=== PATIENT | male | born 1950 | race Caucasian/White ===

== ENCOUNTER 2017-07-18 19:23 | Observation (INO) | payer MEDICARE, BC ==
[~2017-07-18] VITALS: Ht 180.3 cm; Wt 74.4 kg
[2017-07-18] MEDS ORDERED: GLUCAGON FOR INJ 1 MG VIAL (J1610) IV STA (21:18)
[2017-07-18] MEDS ORDERED: PROPOFOL 200 MG/20 ML VIAL As Ordered ONE (23:31)
[2017-07-19] MEDS ORDERED: PROPOFOL 200 MG/20 ML VIAL As Ordered ONE ×2 (00:13→00:29)
[2017-07-19] MEDS ORDERED: ePHEDrine SULFATE 25 MG/5 ML(5MG/ML) SYRINGE As Ordered ONE (00:20)
[2017-07-19] MEDS ORDERED: PHENYLephrine HCL 500 MCG/5 ML (100MCG/ML) SYRINGE (J2370) As Ordered ONE (00:21)
[2017-07-19] MEDS ORDERED: GLYCOPYRROLATE INJ 0.2 MG/ML 2 ML VIAL As Ordered ONE (00:33)
[2017-07-19] MEDS ORDERED: ONDANSETRON 4MG/2ML VIAL (J2405) As Ordered ONE (00:34)
[2017-07-19] MEDS ORDERED: GASTROGRAFIN SOLUTION 30ML (Q9963) As Ordered ONE (01:20)
--- NOTE | 2017-07-19 01:28 | ROOR ---
Patient Name: Salas Krishnan Procedure Date: 07/18/2017 10:57 PM Date of : 1950 Age: 67 Room: Main OR Gender: Male Note Status: Finalized Procedure: Upper GI endoscopy Indications: Foreign body in the esophagus Providers: Sergio MOCK MD Referring MD: 3. Emergency Dept 3. Emergency Dept Requesting Provider: Medicines: Monitored Anesthesia Care Complications: No immediate complications. Procedure: Pre-Anesthesia Assessment: - The heart rate, respiratory rate, oxygen saturations, blood pressure, adequacy of pulmonary ventilation, and response to care were monitored throughout the procedure. The Endoscope was introduced through the mouth, and advanced to the second part of duodenum. The upper GI endoscopy was technically difficult and complex due to presence of food and stricture. The patient tolerated the procedure well. Findings: Food was found in the lower third of the esophagus. Removal of food was accomplished. One moderate ulcerated stenosis was found in the lower third of the esophagus. Two deeply cratered distal esophageal ulcers were found. Moderately severe esophagitis was found in the lower third of the esophagus. Mucosa was biopsied with a cold forceps for histology. Impression: - Impacted food in the lower third of the esophagus. Removal was successful. - Inflamed, ulcerated and stenotic GE junction with marked edema.-biopsied - The examination was otherwise normal. Recommendation: - CT chest with oral contrast. - Ad[facility] the [facility] to [facility] for observation. - NPO for now. Sergio Mock MD Sergio MOCK MD 07/19/2017 1:28:45 AM This report has been signed electronically. Number of Addenda: 0 Note Initiated On: 07/18/2017 10:57 PM Estimated Blood Loss: Estimated blood loss: none.
--- NOTE | 2017-07-19 02:10 | REPUSA ---
CLINICAL HISTORY: Prior foreign body removal. TECHNIQUE: Multiple axial CT images were obtained through the thorax without IV contrast material. Glenn dennis ingested oral contrast. COMMENTS: Small sliding hiatal hernia. Contrast is noted in the esophagus without leakage. No findings to suggest esophageal perforation. No soft tissue emphysema is identified in the mediastinal fat. Bilateral basilar groundglass densities of the lungs with associated subsegmental atelectatic air spa ce disease. There is no evidence of pleural or parenchymal-based mass. There are no pleural effusions. There is n o evidence of hilar or mediastinal lymphadenopathy. The heart and great vessels are within normal carr its. The visualized portions of the liver are of uniform attenuation without mass or defect. There is no i ntra or extrahepatic biliary ductal dilatation. The spleen is unremarkable. The visualized pancreas i s of normal contour and attenuation characteristics. There is no evidence of adrenal mass. The visual ized portions of the kidneys present no abnormalities. The bony structures are free of lytic or blastic lesions. IMPRESSION: Air space disease of the lower lobes. Dependent atelectasis and/or superimposed aspiration pneumonia. Clinical evaluation of any signs of active pulmonary infection is needed. No evidence of esophageal perforation. Contrast is noted in the esophagus. Small sliding hiatal hernia. Thank you for your kind referral of this patient.
[2017-07-19 02:30] VITALS: BP 117/80
[2017-07-19] MEDS ORDERED: ONDANSETRON 4MG/2ML VIAL (J2405) IV PRN (02:30)
[2017-07-19] MEDS: NS 1,000 ML IV SCH ×2 (02:51→12:23)
[2017-07-19 04:00] VITALS: BP 105/60
[2017-07-19] MEDS ORDERED: PANTOPRAZOLE 40MG INJ (PROTONIX) (C9113) IV SCH (06:00)
[2017-07-19] MEDS: HEPARIN SOD (PORCINE) 5000 UNITS/ML VIAL SC SCH ×2 (06:14→06:16)
[2017-07-19 09:27] LABS: BASO % 0.2 % (0.0-1.0); EOS # 0.2 K/mm3 (0.0-0.50); LARGE UNSTAINED CELL # 0.2 K/mm3 (0.0-0.4); LARGE UNSTAINED CELL % 1.7 % (0.0-4.0); MEAN CORPUSCULAR HEMOGLOBIN 31.6 pg (27.0-33.0); MEAN CORPUSCULAR HGB CONC 35.5 g/dl (32.0-36.5); MONO # 0.5 K/mm3 (0.0-0.8); MONO % 5.1 % (0.0-5.0); NEUTROPHILS # 6.6 K/mm3 (1.8-7.7); NEUTROPHILS % 69.9 % (36.0-66.0); PLATELET COUNT, AUTOMATED 163 k/mm3 (150-450); RED CELL DISTRIBUTION WIDTH 12.2 % (11.5-14.5); WHITE BLOOD COUNT 9.5 K/mm3 (4.0-10.0)
--- NOTE | 2017-07-19 09:42 | CR ---
DATE OF CONSULTATION: 07/19/2017 STATUS OF PATIENT: Inpatient/observation. Mr. Krishnan is a 67-year-old gentleman without any significant past medical history or surgical history who presents to the emergency room after 2 days of foreign body impaction in the esophagus that he has been trying to clear at home by himself. He has had recurrent symptoms of esophageal food impactions that spontaneously clear for the past several years. However, on this occasion this did not. He is otherwise quite healthy. He does not have a primary care physician and takes no medications. Upper endoscopy was performed in the operating room under MAC anesthesia. He had esophageal food impaction, which was quite severely impacted and required extensive and numerous passes through the esophagus to disimpact. Eventually disimpaction was accomplished. Once the food material was cleared, underlying deep ulcerations, severe inflammation, edema and associated mucosal laceration. The patient tolerated the procedure and post op course otherwise quite well. However, due to the depth of the ulcerations and the associated mucosal lacerations I was uncertain if I had created this with my scope or whether these are baseline. The patient also has an esophageal stricture in this area. The patient postoperatively is doing quite well. He is afebrile. He denies any chest pain. No back pain. No shortness of breath and had an uneventful initial postoperative course. Due to the severity of the esophagitis and ulcerations, I decided to proceed with a CT chest with oral contrast to exclude an esophageal rupture/leak. CT of the chest was performed and no such leak was seen. The patient is being admitted for observation overnight to monitor for delayed perforation.. PAST MEDICAL HISTORY: None except for recurrent bouts of esophageal food impaction that spontaneously clear. Onset was about 3-4 years ago. Other than that, he has no medical history, he takes no medications. FAMILY HISTORY: Negative for colorectal carcinoma, inflammatory bowel disease. REVIEW OF SYSTEMS: General: Negative for weight loss, night sweats, fevers or chills. Pulmonary: Negative for hemoptysis, pleuritic-type chest pain. Cardiac: Negative for orthopnea, paroxysmal nocturnal dyspnea (PND). Gastrointestinal (GI): As per history of present illness (HPI). Genitourinary (): Negative for hematuria, dysuria. Musculoskeletal: Negative for arthralgias, myalgias. ALLERGIES TO MEDICATIONS: None. MEDICATIONS: None. Vital signs: Temperature 99.8/95.2, pulse is 78 and regular, respiratory rate is 16, blood pressure is 101/72, pulse oximetry 93% on room air. General: He is awake, alert and oriented times three in no acute distress, nontoxic in appearance, completely comfortable. Head, eyes, ears, nose and throat are without abnormalities. There is no oral thrush. Neck is supple, no lymphadenopathy, thyromegaly. Chest: Coarse distant breath sounds without rhonchi. Abdomen is soft, nontender. Good bowel sounds. No masses or organomegaly. Extremities: Negative for edema. Rectal: Examination has been deferred. Neurologic examination: He moves all extremities equally and bilaterally. He is awake, alert and oriented times three. RADIOLOGY: CT chest reviewed as above. EGD as reviewed above. IMPRESSION: 67-year-old gentleman that presents with esophageal food impaction that was extremely difficult to clear and required numerous passes with the scope. Once the foreign body was cleared, underlying severe deep ulcerations and some mucosal lacerations were noted. It is unknown whether the ulcerations/lacerations are baseline or whether this was created by scope. RECOMMENDATIONS: 1. The patient will be admitted for observation due to esophageal findings. Perforation which has been ruled out by exam and stat CT chest. 2. Depending on progress tonight and tomorrow morning, will recheck stat CT scan if spiking fevers or symptoms of delayed esophageal perforation. MTDD
--- NOTE | 2017-07-19 09:42 | HPE ---
DATE OF ADMISSION: 07/18/2017 PRIMARY CARE PROVIDER: None. HISTORY OF PRESENT ILLNESS: This patient is a 67-year-old male without any past medical history presented to [facility] on 07/18/2017 after food is stuck in the throat. Patient stated on 07/17/2017 around 5 p.m. patient was eating supper when he tried to ingest meat and the meat stuck in his esophagus and he could not get it out. He does have difficulty swallowing with solids for the past 3-4 years. No issue with liquid oral intake. Patient was brought to the procedure room by Dr. Mock for upper endoscopy. The food was found in the lower third of the esophagus and the food was removed. During the procedure, patient was found to have moderate ulcerated stenosis in the lower third of the esophagus and there are two very deep cratered distal esophageal ulcers. Patient tolerated procedure well. However, due to concern for perforation, CT was performed and it is recommended patient be observed overnight. The procedure was performed near midnight. ALLERGIES: No known drug allergies. PAST MEDICAL HISTORY: None. PAST SURGICAL HISTORY: Hernia repair more than 20 years ago. HOME MEDICATIONS: None. SOCIAL HISTORY: Denies smoking. Drinks beer occasionally. Denied any recreational drug use. REVIEW OF SYSTEMS: GENERAL: No fever. No chills. HEENT: No vision changes. No auditory changes. CARDIOVASCULAR: No chest pain. No palpitations. RESPIRATORY: Denies any shortness of breath or cough or sputum production. GASTROINTESTINAL: Patient has been having issues with solid oral intake for the past 3-4 years. Patient is being very cautious regarding the way he eats. Patient came to the hospital because the meat got stuck in the esophagus and he was not able to get it out. No issue with liquid oral intake. Denies any stomach pain. No diarrhea. MUSCULOSKELETAL: Complains about the pain between the scapula after the procedure. NEUROLOGICAL: No numbness. No tingling. OBJECTIVE: VITAL SIGNS: Temperature 99.8, pulse 80, respirations 16, blood pressure 99/64, pulse oximetry is 93% in room air. GENERAL: No sign of acute distress. Alert and oriented times three. HEENT: Normocephalic, atraumatic. Extraocular motor grossly intact. CARDIOVASCULAR: Positive systolic murmur heard at the sternal border. Positive S1, S2, regular rate. LUNGS: There are minor crackles mainly on the lung base toward the left. No wheezes appreciated. ABDOMEN: Soft, nontender, nondistended, bowel sounds present. MUSCULOSKELETAL: No reproducible tenderness with pressure between the scapula. No lower extremity edema. No sign of cyanosis. NEUROLOGICAL: Sensation to fine touch grossly intact. Muscle strength 5/5. IMAGING STUDIES: CT of the chest without contrast shows airspace disease of the lower lobe. Dependent atelectasis and/or superimposed aspiration pneumonia. No evident esophageal perforation. ASSESSMENT AND PLAN: 1. Dysphagia. Patient will be admitted to medical/surgical floor for overnight observation. Patient was found to have moderate ulcerated stenosis in the lower third of esophagus. Patient just had an upper endoscopy with foreign body removal. During the endoscopy, patient was found to have two deeply cratered distal esophageal ulcers. Due to concern for perforation, patient is admitted for overnight observation. CT of the chest was performed demonstrating no sign of perforation. If the patient started to have acute pain or spiking fever, then we will order a stat repeat CT chest and patient will benefit from broad spectrum antibiotics. Patient is on intravenous (IV) Protonix and the patient is nothing by mouth for now. The patient is on IV fluid. 2. Moderately severe esophagitis. On Protonix. 3. Deep venous thrombosis (DVT) prophylaxis. On heparin.
--- NOTE | 2017-07-19 09:42 | REP ---
Clinical: Foreign body sensation. Technique: AP lateral soft tissue neck views. Findings: Moderate to advanced degenerative changes to the visualized cervical spine noted. The prevertebral soft tissues are relatively normal and there is no subcutaneous emphysema or radiodense foreign body. The airway remains patent. Impression: Degenerative changes of the cervical spine. No obvious foreign body. Signed by Freddy Dodson MD 07/19/2017 08:00 A
[2017-07-19 09:44] LABS: ANION GAP 9 MEQ/L (8-16); BLOOD UREA NITROGEN 25 MG/DL (7-18); CALCIUM LEVEL 7.9 MG/DL (8.8-10.2); CARBON DIOXIDE LEVEL 26 MEQ/L (21-32); CHLORIDE LEVEL 111 MEQ/L (98-107); CREATININE FOR GFR 0.88 MG/DL (0.70-1.30); GLOMERULAR FILTRATION RATE > 60.0 (>49); GLUCOSE, FASTING 87 MG/DL (80-110); POTASSIUM SERUM 3.8 MEQ/L (3.5-5.1); SODIUM LEVEL 146 MEQ/L (136-145)
[2017-07-19] MEDS ORDERED: PROT1TAB2 PO (12:24)
--- NOTE | 2017-07-19 15:18 | DSES ---
DATE OF ADMISSION: 07/18/2017 DATE OF DISCHARGE: 07/19/2017 PRIMARY CARE PROVIDER: None. Arrangements are made for the patient to get a primary care provider. Lending Activities Supervisor: Dr. Sergio Mock FINAL DIAGNOSES: Moderate/severe esophagitis. Dysphagia with food impaction. Esophageal ulceration secondary to esophageal pressure ulcer secondary to food impaction. HISTORY OF PRESENT ILLNESS: This is a 67-year-old male patient without any significant past medical history. He does not see a primary care provider. He presented to [facility] after food got stuck in the patient's throat. The patient stated that on 07/17/2017 around 5:00 p.m., the patient was eating supper when he tried to ingest meat and the meat stuck in his esophagus and he could not get it out. The patient does have difficulty swallowing solids for the past 3-4 years. No issue with liquids or oral intake. The patient was brought to the procedure room by Dr. Sergio Mock. Upper endoscopy was done and fluid was found in the lower third of the esophagus and was removed during the procedure. The patient was found to have a moderate ulcerated stenosis in the lower third of the esophagus. There are two very deep craters in the distal esophageal ulcer. The patient tolerated the procedure well. However, for concern of perforation, request was made for patient to be observed overnight. HOSPITAL COURSE: The patient was admitted overnight after Esophagogastroduodenoscopy (EGD) to the hospitalist service. Labs were sent. CT scan was done showing no esophageal perforation. IV fluids were given. Initially, patient was nothing by mouth. Protonix IV was given. Later after morning labs and after discussion with Dr. Mock, the patient's diet was advanced to full liquid. The patient tolerated the diet with no complications. He is comfortable, ready for discharge for further care as an outpatient. VITAL SIGNS: Temperature 98.8, pulse 66, respiration 18, blood pressure 105/60, pulse ox 97% in room air. GENERAL: Patient alert, oriented times three in on acute distress. HEENT: Normocephalic, atraumatic. PULMONARY: Bilaterally clear to auscultation. CARDIAC: Regular rate and rhythm. Normal S1, S2. ABDOMEN: Soft, nontender. EXTREMITIES: No clubbing, cyanosis or edema. LABORATORY: WBC 9.5, hemoglobin and hematocrit 14.6/41.3, platelets 133. Chemistries: Sodium 146, potassium 3.8, chloride 111, bicarbonate 26, BUN 25, creatinine 0.88, lactic acid 1.2. DISCHARGE MEDICATIONS: Protonix 40 mg by mouth daily DISCHARGE INSTRUCTIONS: The patient is instructed to followup with primary care provider in 1-2 weeks. Followup with pediatric hospitalist, Dr. Mock in 2 weeks. Return to the hospital if symptoms worsen. The patient is instructed to start with a full liquid diet, advanced to soft, no meat or hard vegetable diet after wards and followup with Dr. Mock prior to any additional diet change. The patient is instructed to chew his food as much as possible. Followup pathology.
== END 2017-07-19 13:50 | disposition home or self-care (01) ==
LOC: M ED 19:23 → M MS4PR 19:24
PROVIDERS: ADMIT Internal Medicine; ATTEND Hospitalist
DX: T18.128A Food in esophagus causing other injury, initial encounter (principal); K22.2 Esophageal obstruction; K22.10 Ulcer of esophagus without bleeding; Z79.899 Other long term (current) drug therapy; R13.10 Dysphagia, unspecified; K20.9 Esophagitis, unspecified
CPT/HCPCS: 36415; 43239; 43247; 70360; 71250; 80048; 83605; 85025; 88305; 96374; 96375; 99284; C9113; G0378; J1610; J2370; J2405; Q9963

== ENCOUNTER 2018-08-25 07:24 | Day surgery (SDC) | payer MEDICARE ==
[2018-08-25 08:17] LABS: BASO % 0.3 % (0.0-1.0); EOS # 0.2 10^3/uL (0.0-0.50); EOS % 2.1 % (0.0-3.0); HEMATOCRIT 50.8 % (42.0-52.0); HEMOGLOBIN 17.1 g/dl (13.5-17.5); IMMATURE GRANULOCYTE % 0.4 % (0-3.0); LYMPH # 2.9 10^3/uL (1.5-4.5); LYMPH % 28.6 % (24.0-44.0); MEAN CORPUSCULAR HEMOGLOBIN 29.7 pg (27.0-33.0); MEAN CORPUSCULAR HGB CONC 33.7 g/dl (32.0-36.5); MEAN CORPUSCULAR VOLUME 88.3 fl (80.0-96.0); MONO # 0.6 10^3/uL (0.0-0.8); MONO % 5.5 % (0.0-5.0); NEUTROPHILS # 6.4 10^3/uL (1.8-7.7); NEUTROPHILS % 63.1 % (36.0-66.0); PLATELET COUNT, AUTOMATED 179 10^3/uL (150-450); RED BLOOD COUNT 5.75 10^6/uL (4.30-6.10); WHITE BLOOD COUNT 10.2 10^3/uL (4.0-10.0)
[2018-08-25 08:40] LABS: ANION GAP 9 MEQ/L (8-16); BLOOD UREA NITROGEN 21 MG/DL (7-18); CALCIUM LEVEL 9.4 MG/DL (8.8-10.2); CARBON DIOXIDE LEVEL 28 MEQ/L (21-32); CHLORIDE LEVEL 105 MEQ/L (98-107); CREATININE FOR GFR 1.06 MG/DL (0.70-1.30); GLOMERULAR FILTRATION RATE > 60.0 (>49); GLUCOSE, FASTING 117 MG/DL (70-100); POTASSIUM SERUM 4.4 MEQ/L (3.5-5.1); SODIUM LEVEL 142 MEQ/L (136-145)
[2018-08-25] MEDS: NS 1,000 ML IV ×2 (10:03→16:26)
[2018-08-25] MEDS: GLUCAGON FOR INJ 1 MG VIAL (J1610) IV (10:03)
[2018-08-25] MEDS ORDERED: MIDAZOLAM INJ 2 MG/2 ML VIAL (J2250) As Ordered (18:20)
[2018-08-25] MEDS ORDERED: fentaNYL 100 MCG/2 ML INJECTION (J3010) As Ordered (18:20)
[2018-08-25] MEDS ORDERED: ONDANSETRON 4MG/2ML VIAL (J2405) As Ordered (18:32)
[2018-08-25] MEDS ORDERED: dexameTHASONE 4 MG/ML 1ML VIAL (J1100) As Ordered (18:32)
[2018-08-25] MEDS: LR 1,000 ML IV (18:59)
[2018-08-25] MEDS: PANTOPRAZOLE 40MG INJ (PROTONIX) (C9113) IV (19:15)
[2018-08-25] MEDS ORDERED: PERCOCET 5MG/325MG TAB PO (19:30)
[2018-08-25] MEDS ORDERED: HYDROMORPHONE HCL 0.5 MG/ 0.5 ML SYRINGE (J1170 PER 1) IV (19:30)
[2018-08-25] MEDS ORDERED: fentaNYL 100 MCG/2 ML INJECTION (J3010) IV (19:30)
[2018-08-25] MEDS ORDERED: ONDANSETRON 4MG/2ML VIAL (J2405) IV (19:30)
[2018-08-25] MEDS ORDERED: LIDOCAINE 2% INJ 100 MG/5 ML SDV (FOR ANES.) As Ordered (21:14)
[2018-08-25] MEDS ORDERED: PROPOFOL 200 MG/20 ML VIAL As Ordered (21:14)
== END 2018-08-25 20:50 | disposition home or self-care (01) ==
LOC: M SDC 20:50 → M ED 07:24 → M SDC 16:11
DX: K20.9 Esophagitis, unspecified (principal); K44.9 Diaphragmatic hernia without obstruction or gangrene; K29.70 Gastritis, unspecified, without bleeding
CPT/HCPCS: 43239

== ENCOUNTER → 2019-05-14 | Outpatient (REF) | payer SELFPAY ==
[~2019-05-14] MED LIST: PROT1TAB2 PO
== END ==
LOC: M LAB LCGH 14:36
PROVIDERS: ATTEND Physician Assistant
DX: C44.310 Basal cell carcinoma of skin of unspecified parts of face (principal)

== ENCOUNTER 2020-12-15 15:34 | Day surgery (SDC) | payer MEDICARE ==
[~2020-12-15] VITALS: Ht 180.3 cm; Wt 74.7 kg
--- OUTSIDE RECORDS SUMMARY | 2020-12-15 15:43 | CCD ---
Author Author [facility] Organization [facility] Address Unknown Phone Unavailable Support Name Relationship Address Phone SELF Next Of Kin [address] [place] [address] UNK Next Of Kin Unknown Unavailable SOURWINE, SPENCER Next Of Kin [address] [place] [address] SELF EMP DAIRY FARM Next Of Kin [address] [place] [address] SUNNY GOMES Next Of Kin [address] [place] [address] MANINDER GOMES Next Of Kin [address] [place] [address] Spencer Gomes ECON Unknown Unavailable Shanawine, F Maninder ECON [address] [place] [address] Re-disclosure Warning The records that you are about to access may contain information from federally-assisted alcohol or drug abuse programs. If such information is present, then the following federally mandated warning applies: This information has been disclosed to you from records protected by federal confidentiality rules (42 CFR part 2). The federal rules prohibit you from making any further disclosure of this information unless further disclosure is expressly permitted by the written consent of the person to whom it pertains or as otherwise permitted by 42 CFR part 2. A general authorization for the release of medical or other information is NOT sufficient for this purpose. The Federal rules restrict any use of the information to criminally investigate or prosecute any alcohol or drug abuse patient.The records that you are about to access may contain highly sensitive health information, the redisclosure of which is protected by Article 27-F of the [facility] Public Health law. If you continue you may have access to information: Regarding HIV / AIDS; Provided by facilities licensed or operated by the [facility] Office of Mental Health; or Provided by the [facility] Office for People With Developmental Disabilities. If such information is present, then the following [facility] mandated warning applies: This information has been disclosed to you from confidential records which are protected by state law. State law prohibits you from making any further disclosure of this information without the specific written consent of the person to whom it pertains, or as otherwise permitted by law. Any unauthorized further disclosure in violation of state law may result in a fine or fci sentence or both. A general authorization for the release of medical or other information is NOT sufficient authorization for further disc losure. Family History Family Member Name Family Member Gender Family Member Status Date o f Status Description Data Source(s) Unknown Unknown Problem MEDENT ([facility], ) mother age 80 Insurance Providers Payer name Policy type / Coverage type Policy ID Covered constitution party ID Covered constitution party's relationship to mas Policy Mas Plan Information MEDICARE COMPLETE [id number] SP [id number] [facility] MEDICARE [id number] S [id number] [employer] [place] [id number] S [id number] [facility] MEDICARE [id number] S [id number] [employer] [place] [id number] S [id number] SELF PAY SP MEDICARE COMPLETE [id number] SP [id number] MEDICARE COMPLETE [id number] SP [id number] MEDICARE COMPLETE [id number] SP [id number] MEDICARE COMPLETE [id number] SP [id number] [place] [place] WATN 306/806 [id number] SP [id number] MEDICARE COMPLETE[facility] O [id number] S [id number] [place] Primary [id number] Self [id number] [facility] Medicare Commercial [id number] Self [id number] [employer] BCBS Medigap Part B [id number] Self [id number] [place] Primary [id number] Self [id number] United[employer] Medicare Commercial [id number] Self [id number] [place] Primary [id number] Self [id number] [facility] Medicare Commercial [id number] Self [id number] [place] MEDICARE PART B C [id number] S [id number] MEDICARE C [id number] S [id number] A [place] MEDICARE PART B C [id number] S [id number] MEDICARE [id number] SP [id number] A EXC PLANS 1 [id number] SELF PAY 2 UNAVAILABLE 1 UNAVAILA BLE SELF PAY SP [id number] S [id number] [employer] [place] BC [id number] S JOURDAN [id number]
--- OUTSIDE RECORDS SUMMARY | 2020-12-15 16:12 | CCD ---
Author Author [facility] Organization [facility] Address Unknown Phone Unavailable Support Name Relationship Address Phone SELF Next Of Kin [address] [place] [address] UNK Next Of Kin Unknown Unavailable SOURWINE, SPENCER Next Of Kin [address] [place] [address] SELF EMP DAIRY FARM Next Of Kin [address] [place] [address] SUNNY GOMES Next Of Kin [address] [place] [address] MANINDER GOMES Next Of Kin [address] [place] [address] Spencer Gomes ECON Unknown Unavailable Shanawine, F Maninder ECON [address] [place] [address] Re-disclosure Warning The records that you are [...] is protected by Article 27-F of the [facility] Public Health law. If you continue you may have access to information: Regarding HIV / AIDS; Provided by facilities licensed or operated by the [facility] Office of Mental Health; or Provided by the [facility] Office for People With Developmental Disabilities. If such information is present, then the following [facility] mandated warning applies: This information [...] law may result in a fine or snf sentence or both. A general authorization for the release of medical or other information is NOT sufficient authorization for further disc losure. Family History Family Member Name Family Member Gender Family Member Status Date o f Status Description Data Source(s) Unknown Unknown Problem MEDENT ([facility], ) mother age 80 Insurance Providers Payer name Policy type / Coverage type Policy ID Covered democrat ID Covered democrat's relationship to mas Policy Mas Plan Information MEDICARE COMPLETE [id number] SP [id number] [facility] MEDICARE [id number] S [id number] [employer] [place] [id number] S [id number] [facility] MEDICARE [id number] S [id number] [employer] [place] [id number] S YND [id number] SELF PAY SP MEDICARE COMPLETE [id number] SP [id number] MEDICARE COMPLETE [id number] SP [id number] MEDICARE COMPLETE [id number] SP [id number] MEDICARE COMPLETE [id number] SP [id number] [place] [place] WATN 306/806 [id number] SP [id number] MEDICARE COMPLETE[facility] O [id number] S [id number] [place] Medicare Primary [id number] Self [id number] [facility] Commercial [id number] Self [id number] [employer] Medigap Part B [id number] Self [id number] [place] Medicare Primary [id number] Self [id number] [employer] Medicare Commercial [id number] Self [id number] [place] Primary [id number] Self [id number] [facility] Medicare Commercial [id number] Self [id number] [place] MED[place]ARE PART B C [id number] S [id number] MEDICARE C [id number] S [id number] A [place] MEDICARE PART B C [id number] S [id number] MEDICARE [id number] SP [id number] A EXC PLANS 1 [id number] SELF PAY 2 UNAVAILABLE 1 UNAVAILA BLE SELF PAY SP [id number] S [id number] [employer] [place] BC [id number] S JOURDAN [id number]
--- NOTE | 2020-12-15 16:26 | REP ---
INDICATION: food bolus-with hx of and pork chop since 1830 last night. COMPARISON: Comparison study is July 18, 2017.. TECHNIQUE: AP and lateral views. Three views provided. FINDINGS: The epiglottis and aryepiglottic folds are normal in appearance. Retropharyngeal soft tissues are not widened. Glottic and subglottic airway is unremarkable. There is mild degenerative disc disease in the cervical spine with discogenic spurring most pronounced at the C6-7 unchanged from the prior study. No opaque foreign body is seen. Some air is visible in the upper esophagus. IMPRESSION: No opaque foreign body seen. Normal supraglottic and subglottic airway. Normal epiglottis. <Electronically signed by Emiliano Hou > 12/15/20 2433
[2020-12-15] MEDS ORDERED: GLUCAGON INJ 1MG VIAL IV STA (16:33)
[2020-12-15 17:08] LABS: BASO % 0.2 % (0.0-1.0); EOS # 0.1 10^3/uL (0.0-0.5); EOS % 0.9 % (0.0-3.0); HEMATOCRIT 48.9 % (42.0-52.0); HEMOGLOBIN 15.9 g/dl (13.5-17.5); LYMPH % 23.9 % (24.0-44.0); MEAN CORPUSCULAR HEMOGLOBIN 28.8 pg (27.0-33.0); MEAN CORPUSCULAR HGB CONC 32.5 g/dl (32.0-36.5); MEAN CORPUSCULAR VOLUME 88.4 fl (80.0-96.0); MONO # 0.5 10^3/uL (0.0-0.8); MONO % 4.2 % (0.0-5.0); NEUTROPHILS % 70.4 % (36.0-66.0); PLATELET COUNT, AUTOMATED 148 10^3/uL (150-450); RED BLOOD COUNT 5.53 10^6/uL (4.30-6.10); WHITE BLOOD COUNT 12.7 10^3/uL (4.0-10.0)
[2020-12-15 18:18] LABS: RSV AMPLIFICATION NEGATIVE (NEGATIVE)
[2020-12-15] MEDS ORDERED: propofoL 200 MG/20 ML VIAL As Ordered ONE (19:44)
[2020-12-15] MEDS ORDERED: LIDOCAINE 2% 100MG/5ML SDV (FOR ANES.) As Ordered ONE (19:44)
[2020-12-15] MEDS ORDERED: SUCCINYLCHOLINE 100 MG/5 ML SYRINGE (J0330) As Ordered ONE (19:45)
[2020-12-15] MEDS ORDERED: fentaNYL 100 MCG/2 ML INJECTION (J3010) As Ordered ONE (19:45)
[2020-12-15] MEDS ORDERED: ROCURONIUM BROMIDE 50 MG/5 ML VIAL As Ordered ONE (19:45)
[2020-12-15] MEDS ORDERED: MIDAZOLAM INJ 2MG/2ML VIAL (J2250 PER 1MG) As Ordered ONE (19:46)
--- OUTSIDE RECORDS SUMMARY | 2020-12-15 20:03 | CCD ---
Author Author [facility] Organization [facility] Address Unknown Phone Unavailable Support Name Relationship Address Phone SELF Next Of Kin [address] [place] [address] UNK Next Of Kin Unknown Unavailable SOURWINE, SPENCER Next Of Kin [address] [place] [address] SELF EMP [employer]IRY FARM Next Of Kin [address] [place] [address] SUNNY GOMES Next Of Kin [address] [place] [address] MANINDER GOMES Next Of Kin [address] [place] [address] Spencer Gomes ECON Unknown Unavailable Shanawine, F Maninder ECON [address] [place] [address] Re-disclosure Warning The records that you are [...] by Article 27-F of the [facility] Public Health law. If you continue you may have access to information: Regarding HIV / AIDS; Provided by facilities licensed or operated by the [facility] Office of Mental Health; or Provided by the [facility] Office for People With Developmental Disabilities. If such information is present, then the following [facility] mandated warning applies: This information [...] law may result in a fine or fpc sentence or both. A general authorization for the release of medical or other information is NOT sufficient authorization for further disc losure. Family History Family Member Name Family Member Gender Family Member Status Date o f Status Description Data Source(s) Unknown Unknown Problem MEDENT (Amanda hoover [facility], ) mother age 80 Insurance Providers Payer name Policy type / Coverage type Policy ID Covered alliance party ID Covered alliance party's relationship to mas Policy Mas Plan Information MEDICARE COMPLETE [id number] SP [id number] [facility] MEDICARE [id number] S [id number] [employer] [place] [id number] S [id number] [facility] MEDICARE [id number] S [id number] [employer] [place] [id number] S [id number] SELF PAY SP MEDICARE COMPLETE [id number] SP [id number] MEDICARE COMPLETE [id number] SP [id number] MEDICARE COMPLETE [id number] SP [id number] MEDICARE COMPLETE [id number] SP [id number] [employer] [place] WATN 306/806 [id number] SP [id number] [place]IC[place] O [id number] S [id number] [place] Primary [id number] Self [id number] [facility] Medicare Commercial [id number] Self [id number] [employer] BCBS Medigap Part B [id number] Self [id number] [place] Primary [id number] Self [id number] [employer] Medicare Commercial [id number] Self [id number] [place] Primary [id number] Self [id number] [facility] Medicare Commercial [id number] Self [id number] [place] B C [id number] S [id number] MEDICARE C [id number] S [id number] A [place] MED[place] PART B C [id number] S [id number] MEDICARE [id number] SP [id number] A EXC PLANS 1 [id number] SELF PAY 2 UNAVAILABLE 1 UNAVAILA BLE SELF PAY SP [id number] S [id number] [employer] [place] BC [id number] S JOURDAN [id number]
[2020-12-15] MEDS ORDERED: dexameTHASONE 4 MG/ML 1ML VIAL (J1100 PER 1MG) As Ordered ONE (20:52)
[2020-12-15] MEDS ORDERED: METOCLOPRAMIDE INJ 10MG/2ML VIAL (J2765 PER 1) As Ordered ONE (21:00)
[2020-12-15] MEDS ORDERED: ONDANSETRON 4MG/2ML VIAL As Ordered ONE (21:01)
[2020-12-15] MEDS ORDERED: GLYCOPYRROLATE INJ 0.2 MG/ML 2 ML VIAL As Ordered ONE (21:02)
[2020-12-15] MEDS ORDERED: NEOSTIGMINE 10MG/10ML VIAL (J2710 PER 0.5MG) As Ordered ONE (21:02)
[2020-12-15] MEDS ORDERED: PHENYLephrine 500MCG 5ML (100MCG/ML) SYRINGE As Ordered ONE ×2 (21:13→21:15)
--- NOTE | 2020-12-15 21:52 | ROOR ---
Patient Name: Salas Krishnan Procedure Date: 12/15/2020 7:26 PM Date of : 1950 Age: 70 Gender: Male Note Status: Finalized Procedure: Upper GI endoscopy Indications: Removal of foreign body in the esophagus Providers: Venkatesh Pruitt MD Referring MD: 3. Emergency Dept 3. Emergency Dept Requesting Provider: Medicines: Monitored Anesthesia Care Complications: No immediate complications. Procedure: Pre-Anesthesia Assessment: - Prior to the procedure, a History and Physical was performed, and patient medications and allergies were reviewed. The patient is competent. The risks and benefits of the procedure and the sedation options and risks were discussed with the patient. All questions were answered and informed consent was obtained. Patient identification and proposed procedure were verified by the physician, the nurse and the anesthesiologist in the procedure room. Mental Status Examination: alert and oriented. Airway Examination: normal oropharyngeal airway and neck mobility. Respiratory Examination: clear to auscultation. CV Examination: normal. Prophylactic Antibiotics: The patient does not require prophylactic antibiotics. Prior Anticoagulants: The patient has taken no previous anticoagulant or antiplatelet agents. ASA Grade Assessment: II - A patient with mild systemic disease. After reviewing the risks and benefits, the patient was deemed in satisfactory condition to undergo the procedure. The anesthesia plan was to use general anesthesia. Immediately prior to administration of medications, the patient was re-assessed for adequacy to receive sedatives. The heart rate, respiratory rate, oxygen saturations, blood pressure, adequacy of pulmonary ventilation, and response to care were monitored throughout the procedure. The physical status of the patient was re-assessed after the procedure. The Endoscope was introduced through the mouth, and advanced to the second part of duodenum. The upper GI endoscopy was accomplished without difficulty. The patient tolerated the procedure well. Findings: Food was found in the lower third of the esophagus. Removal of food was accomplished. Mucosal changes including longitudinal furrows and crepe paper esophagus were found in the mid esophagus. LA Grade D (one or more mucosal breaks involving at least 75% of esophageal circumference) esophagitis with no bleeding was found in the lower third of the esophagus. No gross lesions were noted in the entire examined stomach. The duodenal bulb and second portion of the duodenum were normal. Impression: - Food in the lower third of the esophagus. Removal was successful. - Esophageal mucosal changes consistent with eosinophilic esophagitis. - LA Grade D erosive esophagitis. - No gross lesions in the stomach. - Normal duodenal bulb and second portion of the duodenum. Recommendation: - Patient has a contact number available for emergencies. The signs and symptoms of potential delayed complications were discussed with the patient. Return to normal activities tomorrow. Written discharge instructions were provided to the patient. - Clear liquid diet for 1 day, then advance as tolerated to soft diet. - Use Protonix (pantoprazole) 40 mg PO twice daily - to be taken in morning (1/2 hour before breakfast) and at bedtime ( atleast 3 hours after last meal) for 3 months. - Use sucralfate tablets 1 gram PO QID for 4 weeks. - Follow an antireflux regimen. - Repeat upper endoscopy in 3 months to check healing. - Return to GI clinic in [facility] (address [address], [address], [place], [facility]) in 4 -- 6 weeks. Please call GI clinic @ [phone] for apppointment date and time. - Return to primary care physician. Procedure Code(s): --- Professional --- 63610, Esophagogastroduodenoscopy, flexible, transoral; with removal of foreign body(s) Diagnosis Code(s): --- Professional --- T18.128A, Food in esophagus causing other injury, initial encounter K22.8, Other specified diseases of esophagus K20.8, Other esophagitis T18.108A, Unspecified foreign body in esophagus causing other injury, initial encounter CPT copyright 2019 [employer]. All rights reserved. The codes documented in this report are preliminary and upon company laborer review may be revised to meet current compliance requirements. Venkatesh Pruitt MD Venkatesh Pruitt MD 12/15/2020 9:51:59 PM Electronically signed by Venkatesh Pruitt MD Number of Addenda: 0 Note Initiated On: 12/15/2020 7:26 PM Estimated Blood Loss: Estimated blood loss was minimal.
[2020-12-15] MEDS ORDERED: fentaNYL 100 MCG/2 ML INJECTION (J3010) IV PRN (22:00)
[2020-12-15] MEDS ORDERED: ONDANSETRON 4MG/2ML VIAL IV PRN (22:00)
[2020-12-15] MEDS ORDERED: LR 1,000 ML IV SCH (22:00)
[2020-12-15 23:00] VITALS: BP 118/72
== END 2020-12-15 23:00 | disposition home or self-care (01) ==
LOC: M ED 15:34 → M SDC 19:57
PROVIDERS: ATTEND Internal Medicine Gastroenterology
DX: T18.128A Food in esophagus causing other injury, initial encounter (principal); K22.8 Other specified diseases of esophagus; K20.80 Other esophagitis without bleeding; Y92.89 Other specified places as the place of occurrence of the external cause; Y93.9 Activity, unspecified; Y99.9 Unspecified external cause status
CPT/HCPCS: 43247; 70360; 85025; 87631; 96374; 99284; J0330; J1100; J1610; J2250; J2370; J2405; J2710; J2765; J3010

== ENCOUNTER 2021-09-30 07:08 | Day surgery (SDC) | payer MEDICARE ==
[~2021-09-30] VITALS: Ht 182.9 cm; Wt 72.7 kg
[2021-09-30 08:42] LABS: HEMATOCRIT 49.9 % (42.0-52.0); HEMOGLOBIN 16.4 g/dl (13.5-17.5); MEAN CORPUSCULAR HEMOGLOBIN 29.5 pg (27.0-33.0); MEAN CORPUSCULAR HGB CONC 32.9 g/dl (32.0-36.5); MEAN CORPUSCULAR VOLUME 89.9 fl (80.0-96.0); PLATELET COUNT, AUTOMATED 141 10^3/uL (150-450); RED BLOOD COUNT 5.55 10^6/uL (4.30-6.10); WHITE BLOOD COUNT 10.5 10^3/uL (4.0-10.0)
[2021-09-30 09:16] LABS: BLOOD UREA NITROGEN 28 MG/DL (7-18); CALCIUM LEVEL 9.1 MG/DL (8.8-10.2); CARBON DIOXIDE LEVEL 24 MEQ/L (21-32); CHLORIDE LEVEL 110 MEQ/L (98-107); CREATININE FOR GFR 1.11 MG/DL (0.70-1.30); GLOMERULAR FILTRATION RATE > 60.0 (>42); GLUCOSE, FASTING 81 MG/DL (70-100); POTASSIUM SERUM 4.3 MEQ/L (3.5-5.1); SODIUM LEVEL 143 MEQ/L (136-145)
[2021-09-30 09:28] LABS: RSV AMPLIFICATION NEGATIVE (NEGATIVE)
[2021-09-30] MEDS ORDERED: ROCURONIUM BROMIDE 50 MG/5 ML VIAL As Ordered ONE (09:29)
[2021-09-30] MEDS ORDERED: LIDOCAINE 2% 100MG/5ML SDV (FOR ANES.) As Ordered ONE (09:29)
[2021-09-30] MEDS ORDERED: propofoL 200 MG/20 ML VIAL As Ordered ONE (09:29)
[2021-09-30] MEDS ORDERED: fentaNYL 100 MCG/2 ML INJECTION As Ordered ONE (09:29)
[2021-09-30] MEDS ORDERED: ONDANSETRON 4MG/2ML VIAL As Ordered ONE (09:30)
[2021-09-30] MEDS ORDERED: dexameTHASONE 4 MG/ML 1ML VIAL (J1100 PER 1MG) As Ordered ONE (09:30)
[2021-09-30] MEDS ORDERED: SUCCINYLCHOLINE 100 MG/5 ML SYRINGE (J0330) As Ordered ONE (09:30)
[2021-09-30] MEDS ORDERED: SUGAMMADEX SODIUM 500 MG/5 ML VIAL (BRIDION) As Ordered ONE (10:11)
[2021-09-30] MEDS ORDERED: ePHEDrine SULFATE 25 MG/5 ML(5MG/ML) SYRINGE As Ordered ONE (10:18)
[2021-09-30 11:15] VITALS: BP 120/84
[2021-09-30 11:45] VITALS: BP 121/82
== END 2021-09-30 12:45 | disposition home or self-care (01) ==
LOC: M ED 07:08 → M SDC 07:09 → M MS5PR 11:10 → M SDC 12:45
PROVIDERS: ATTEND Internal Medicine Gastroenterology
DX: T18.128A Food in esophagus causing other injury, initial encounter (principal); K22.2 Esophageal obstruction; K20.90 Esophagitis, unspecified without bleeding; E78.5 Hyperlipidemia, unspecified; F17.200 Nicotine dependence, unspecified, uncomplicated
CPT/HCPCS: 43239; 43247; 71045; 80048; 85027; 87631; 88305; 93005; 99284; J0330; J1100; J2405; J3010

== ENCOUNTER → 2022-01-17 | Outpatient (CLI) | payer MEDICARE | LOC: M PLAIMG 14:08 | PROVIDERS: ATTEND Internal Medicine Gastroenterology | DX: K22.2 Esophageal obstruction (principal) ==